=== PATIENT | male | born 1970 | race Caucasian/White ===

== ENCOUNTER 2017-12-03 13:13 | Emergency (ER) | payer OTHER, SELFPAY ==
[2017-12-03 13:15] VITALS: BP 179/90; PULSE 76; RESP 14; TEMP 37.1; O2SAT 99
--- NOTE | 2017-12-03 14:42 | ED.LOWEXIN ---
HPI - Extremity Injury (Lower) <MARIZOL Raya Last Filed: 12/03/17 19:55> General Chief Complaint: Extremity Injury, Lower Stated Complaint: LEFT KNEE PAIN Time Seen by Provider: 12/03/17 14:16 Source: patient Mode of arrival: ambulatory Limitations: physical limitation History of Present Illness HPI Narrative: This 47-year-old male comes in due to an exacerbation of intermittent quadrant left quadriceps/knee pain. He states that 10 years ago he had a complete tendon rupture of the quadriceps, which was repaired. He states that another orthopedist told him the anchors were put too far anteriorly, and so due to this he has intermittent exacerbations of severe pain under the knee cap. He states that over the weekend, he was running up some stairs and he had onset of pain under the knee about [facility] up. He states now it is very painful to bend the knee and lift it up due to the pain. He denies any fall or any other injury, and states this is very similar to the pain he has had in the past. He states that he mainly came in due to his girlfriend pushing him to because she was concerned about the amount of ibuprofen he tends to take (8 or 10 at a time) and he could not get an appointment with his PCP. He admits this can upset his stomach. He took some earlier this morning but has not had any since then. He states that he does not have weakness, and it is pain that keeps him from movement. He states that he is able to walk on flat ground with his knee brace that he uses when this flares up. Related Data Previous Rx's Medication Instructions Recorded hydrocodone-acetaminophen 1 tab PO Q8H PRN #5 tab 12/03/17 meloxicam 15 mg PO DAILY #14 tab 12/03/17 Allergies Allergy/AdvReac Type Severity Reaction Status Date / Time No Known Drug Allergies Allergy Verified 12/03/17 14:01 Review of Systems <MARIZOL Raya Last Filed: 12/03/17 19:55> Review of Systems All systems reviewed & are unremarkable except as noted in HPI and below PFSH <MARIZOL Raya Last Filed: 12/03/17 19:55> Comment: Acute renal EtOH, no street drugs Exam <MARIZOL Raya Last Filed: 12/03/17 19:55> Narrative Exam Narrative: GENERAL APPEARANCE: Patient sitting comfortably, in no distress. LUNGS: Clear to auscultation bilaterally. HEART: Rate and rhythm regular without murmur, normal S1 and S2, no S3 or S4. MUSCULOSKELETAL: Perhaps trace edema over the left inferior quadriceps versus the right. No tenderness over the muscle body which is intact by palpation. No tenderness over the left hip or knee joint. He is tender at the medial to midline inferior patellar border, no tenderness laterally. Quadriceps strength is intact against resistance however he has difficulty bending and straightening the knee secondary to tenderness. No tenderness over the lower leg or ankle EXTREMITIES: No cyanosis or edema, no calf tenderness Initial Vital Signs Initial Vital Signs: Vital Signs Temperature 98.8 F 12/03/17 13:15 Pulse Rate 76 12/03/17 13:15 Respiratory Rate 14 12/03/17 13:15 Blood Pressure 179/90 H 12/03/17 13:15 Pulse Oximetry 99 12/03/17 13:15 <Sergio Plunkett MD - Last Filed: 12/03/17 20:26> Initial Vital Signs Initial Vital Signs: Vital Signs Temperature 98.8 F 12/03/17 13:15 Pulse Rate 76 12/03/17 13:15 Respiratory Rate 14 12/03/17 13:15 Blood Pressure 179/90 H 12/03/17 13:15 Pulse Oximetry 99 12/03/17 13:15 Course <Mila Ponce PA-C - Last Filed: 12/03/17 19:55> Vital Signs - 8 hr 12/03/17 13:15 Temperature 98.8 F Pulse Rate 76 Respiratory Rate 14 Blood Pressure 179/90 H Pulse Oximetry 99 <Sergio Plunkett MD - Last Filed: 12/03/17 20:26> Vital Signs - 8 hr 12/03/17 13:15 Temperature 98.8 F Pulse Rate 76 Respiratory Rate 14 Blood Pressure 179/90 H Pulse Oximetry 99 Discharge Plan Departure Patient Disposition: Home Clinical Impression: Quadriceps tendonitis Discharge Date/Time: 12/03/17 15:21 Interventions: ED Discharge Assessment Last Done: 12/03/17 15:21 Instructions: Patellar Tendinopathy, DI for Quadriceps Strain Activity Restrictions/Additional Instructions: Since this is similar to the pain that you have had in the past, it is okay to treat similarly. I do not think that based on your exam today you have another rupture, just similar inflammation or tendinitis as you have had previously. I have given you instructions for patellar tendinopathy since you have similar pain. Please use your knee brace, and gentle walking on flat ground is okay. Please stop the large doses of ibuprofen that you are taking and use once a day meloxicam instead for anti-inflammatory. I have also given you a prescription for a few hydrocodone/acetaminophen to take at nighttime if needed. Do not drive and take that is it could make you sleepy. You can also supplement with Tylenol during the daytime as needed for pain. Please schedule appointment to follow up with your PCP to determine whether to make any other changes and consider following up with orthopedics as we talked about to determine whether any better long-term treatment since this has been given you problems off and on for a long time Prescriptions: New meloxicam 15 mg tablet 15 mg PO DAILY Qty: 14 RF: 0 hydrocodone-acetaminophen 5-325 mg tablet 1 tab PO Q8H PRN (Reason: leg pain) Qty: 5 RF: 0 Referrals: Daryn De La Torre MD [Primary Care Provider] - <Sergio Plunkett MD - Last Filed: 12/03/17 20:26> Cosign ED Attending Cosjoaquinature Attestation: I was present in the ER during this patient's evaluation. I was available for verbal consultation or to see the patient directly if requested. I agree with her evaluation and treatment plan.
== END 2017-12-03 15:21 | disposition home or self-care (01) ==
PROVIDERS: Emergency Provider Internal Medicine; PCP Family Medicine
DX: M76.899 Other specified enthesopathies of unspecified lower limb, excluding foot (principal)
CPT/HCPCS: 99282

== ENCOUNTER 2019-07-23 07:18 | Emergency (ER) | payer OTHER, SELFPAY ==
[2019-07-23 07:25] VITALS: BP 153/72; PULSE 77; RESP 21; TEMP 37.2; O2SAT 97
--- NOTE | 2019-07-23 07:32 | ED.BACK ---
HPI - Back Pain/Injury General Chief Complaint: Back Pain/Injury Stated Complaint: Hurt his back on saturday Time Seen by Provider: 07/23/19 07:27 Source: patient and family Limitations: no limitations History of Present Illness HPI Narrative: This is a 49-year-old male comes to the emergency department. Patient complains of back pain but describes it more in the right front hip region. Patient states on Saturday he picked up a box which he states was not particularly heavy bend over and had pain when this occurred. Since then he states his pain is very mild when sitting he states he can lie flat without any issues. When he stands particularly when he walks and flexes at the right hip he has pain in the right ASIS region. He states that there is tightness along the lower back and wrapping around towards the front. Patient states that walking, lifting his right leg at the hip exacerbate his symptoms. He can take 9 or 10 steps before it is quite severe. He denies any radiation down the rest of his leg he denies any numbness or tingling, no loss of bowel or bladder control, no fevers. He has had back issues in the past but typically just in the back and not in the anterior side. He denies any other medical issues. He did have a right complete quadriceps tendon tear in the past which he had surgery for remotely. He denies any allergies to medications. He states he has seen a chiropractor once since this occurred. He has been taking ibuprofen with mild improvement. Related Data Previous Rx's Medication Instructions Recorded diazepam [Valium] 5 mg PO TID PRN #14 tab 07/23/19 tramadol [Ultram] 50 mg PO Q6H PRN #14 tab 07/23/19 Allergies Allergy/AdvReac Type Severity Reaction Status Date / Time No Known Drug Allergies Allergy Verified 07/23/19 07:31 Review of Systems Review of Systems ROS Unobtainable: All systems reviewed & are unremarkable except as noted in HPI and below Patient History Surgical History Hx of nasal septoplasty (Resolved) Quadriceps muscle rupture (Resolved) Social History Smoking Status: Never smoker Smoking Status: Never smoker alcohol intake frequency: 0-2 drinks per day Substance Use Type: does not use Exam Narrative Exam Narrative: GENERAL: Alert and oriented x three, obese male in mild distress. HEENT: Head normocephalic, atraumatic, EOMI, pupils reactive, face symmetric, moist mucous membranes NECK: Supple, full range of motion CARDIOVASCULAR: Regular rate and rhythm without murmurs, rubs or gallops. RESPIRATORY: Breath sounds equal bilaterally, no wheezes rales or rhonchi. ABDOMEN: Soft, nontender. Normoactive bowel sounds all 4 quadrants. No guarding or rebound, rigidity, no mass, no right iguinal pain, mass or tenderness. : No CVA tenderness. BACK: No cervical, thoracic or lumbar vertebral point tenderness. Patient has some pain in right ASIS region. Patient has normal range of motion. Patient's gait is antalgic. Rectal exam is deferred. Muscle strength is 5/5 in lower extremities, DTRs are 2/4 and lower extremities. Dorsalis pedis and tibialis pulses are 2+ and lower extremities. Sensation is intact in the lower extremities. EXTREMITIES: Normal range of motion, no clubbing or edema. Neurovascularly intact NEUROLOGICAL: Cranial nerves II through XII grossly intact. Moving all extremities SKIN: Warm, dry, no petechiae, no rashes or lesions. Initial Vital Signs Initial Vital Signs: Vital Signs Temperature 98.9 F 07/23/19 07:25 Pulse Rate 77 07/23/19 07:25 Respiratory Rate 21 07/23/19 07:25 Blood Pressure 153/72 H 07/23/19 07:25 Pulse Oximetry 97 07/23/19 07:25 Course Orders Ordered: ED Orders 07/23/19 07:49 XR hip w pel if done RT 2V Stat Vital Signs Vital signs: Vital Signs - 8 hr 07/23/19 07:25 07/23/19 08:54 Temperature 98.9 F Pulse Rate 77 72 Respiratory Rate 21 16 Blood Pressure 153/72 H Blood Pressure [Left Arm] 143/82 H Pulse Oximetry 97 98 MDM - Back Pain/Injury Imaging Data right hip xray: Attestation: I personally reviewed and interpreted this imaging study as follows: My Impression: nap, no fx, degenerative changes, FB in lower pelvis noted. Radiologist's Impression: [address] [address] XRay Report Signed Patient: Ortiz Cotter MMR#: [id number] : 1970Acct:[id number] Age/Sex: 49 / MDate of Service: 07/23/19 Loc: ED Accession Number: [id number] Procedure: XR hip w pel if done RT 2V Ordering Provider: Nidhi Rodriguez D.O. PROCEDURE: XR HIP W PEL IF DONE RT 2V INDICATIONS: right back/hip pain, ASIS region TECHNIQUE: AP pelvis with lateral view(s) of the right hip(s). COMPARISON: None. FINDINGS: Bones: No fractures or dislocations. Pelvic ring appears intact. Osteophytic changes are noted in bilateral hip joints more prominent on the right side. No evidence of avascular necrosis of femoral head. No suspicious bony lesions. Soft tissues: The visualized bowel gas pattern is normal. No suspicious soft tissue calcifications. IMPRESSION: Right worse than left bilateral hip joint osteoarthritis. No hip fracture or dislocation. No evidence of avascular necrosis. Dictated by: Wisam Andrews M.D. on 07/23/2019 at 8:48 Approved by: Wisam Andrews M.D. on 07/23/2019 at 8:48 [facility] Narrative Medical decision making narrative: Patient has low back pain that radiates to right anterior ASIS region. Main area of pain is ASIS. Patient is not have any changes consistent with inguinal hernia. He does have some pain in lower back but more anteriorly and with flexion of his hip. Suspect the patient has muscular strain or arthritic changes that is causing his symptoms. Patient states ibuprofen has not been very helpful. X-ray shows arthritic changes no AVN. He does not have any tenderness of his lower back on palpation. He is able to stand and sit without issue him defers any pain medications in the department. Plan for short course of pain medication as well as muscle relaxer and follow up with primary care he is already set up an appointment for following Saturday or . Discussed return precautions. Discharge Plan Departure Patient Disposition: Home Clinical Impression: Hip pain, right Right low back pain Qualifiers: Chronicity: unspecified Sciatica presence: without sciatica Qualified Code(s): M54.5 - Low back pain Instructions: DI for Low Back Pain Activity Restrictions/Additional Instructions: Follow up with your physician. Call for an appointment if you have not already done this. Take pain medication as prescribed, if your pain is controlled with ibuprofen may take up to 600 mg every 6 hours as needed. If this is not adequate you may take 1 tablet of narcotic pain medication every 6 hours as needed. This medication will make you constipated make sure your taking a stool softener while taking any narcotic pain meds. Take muscle relaxer as needed, this medication can make you sleepy along with the narcotic medication make sure you do not drive, perform hazardous activities or make any major decisions while taking it. Prescription was sent to [facility]. Return to the ER for fevers greater 100.4 F, rapidly worsening back pain, loss of bowel or bladder control, new weakness, numbness or loss of sensation or inability usually lower extremity, redness, swelling or lumps in the groin. Prescriptions: New tramadol [Ultram] 50 mg tablet 50 mg PO Q6H PRN (Reason: pain) Qty: 14 RF: 0 diazepam [Valium] 5 mg tablet 5 mg PO TID PRN (Reason: muscle spasm) Qty: 14 RF: 0 Referrals: Daryn De La Torre MD [Primary Care Provider] -
--- NOTE | 2019-07-23 07:49 | DI.RAD.S_ITS ---
PROCEDURE: XR HIP W PEL IF DONE RT 2V INDICATIONS: right back/hip pain, ASIS region TECHNIQUE: AP pelvis with lateral view(s) of the right hip(s). COMPARISON: None. FINDINGS: Bones: No fractures or dislocations. Pelvic ring appears intact. Osteophytic changes are noted in bilateral hip joints more prominent on the right side. No evidence of avascular necrosis of femoral head. No suspicious bony lesions. Soft tissues: The visualized bowel gas pattern is normal. No suspicious soft tissue calcifications. IMPRESSION: Right worse than left bilateral hip joint osteoarthritis. No hip fracture or dislocation. No evidence of avascular necrosis. Dictated by: Wisam Andrews M.D. on 07/23/2019 at 8:48 Approved by: Wisam Andrews M.D. on 07/23/2019 at 8:48
[2019-07-23 08:54] VITALS: BP 143/82; PULSE 72; RESP 16; O2SAT 98
== END 2019-07-23 08:59 | disposition home or self-care (01) ==
PROVIDERS: Emergency Provider Emergency Medicine; PCP Family Medicine
DX: M25.551 Pain in right hip (principal); M54.5 Low back pain
CPT/HCPCS: 73502; 99283

== ENCOUNTER 2023-09-10 13:00 | Outpatient (RCR) | payer OTHER, SELFPAY ==
--- NOTE | 2023-08-06 09:41 | PT.OIE ---
Current Diagnoses Other chronic pain (08/06/23) Unilateral primary osteoarthritis, right hip (08/06/23) Pain in right hip (08/06/23) Difficulty in walking, not elsewhere classified (08/06/23) Weakness (08/06/23) Aftercare following joint replacement surgery (08/06/23) Presence of right artificial hip joint (08/06/23) Past Surgical History (Last Reviewed 07/23/19 @ 08:14 by Nidhi Rodriguez DO) Hx of nasal septoplasty Quadriceps muscle rupture Visit Care Team Role Provider Type Sergio Blank MD Family Provider Physician Primary Care Provider Specialty: Internal Medicine Address: [address] [place] [address], [id number] Email: Jnan Roche MD Attending Provider Non-Staff Referring Provider Specialty: Orthopedics Orthopedic Surgery Address: [address] [place] [address], [id number] Email: Physical Therapy Initial Evaluation PT-OP-A Visit Information Start: 08/05/23 16:35 Freq: Status: Active Protocol: Document 08/06/23 08:10 [facility] (Rec: 08/06/23 09:40 [facility] [id number]) Out-Patient Physical Therapy Visit Information Visit Information Visit Type Initial Evaluation Visit Start Time 08:15 Visit Stop Time 09:00 Visit Number 1 Evaluation Information Evaluation Date 08/06/23 PT-OP-B Current Condition Start: 08/05/23 16:35 Freq: Status: Active Protocol: Document 08/06/23 08:10 [facility]AK (Rec: 08/06/23 09:40 [facility] [id number]) Current Condition History of Current Condition Onset Date 07/31/23 Current Complaints right NAVIN (ant) History of Current Condition Patient reports he has had right hip pain x 7 years. Since surgery has been truggling with pain management , doctor added Ibuprofen and increased Oxycodone as needed. Has been using small gel ice packs. 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 Has been doing some exercises, not all; only glut sets and ankle pumps. Has been up stairs 2x at home; railing and cane, but has difficulty(pain) with descending step to pattern, has been sleeping in a recliner. History left total quadricep tendon rupture s/p surgery, and LBP due to compensation with walking. Future Testing and Treatments Planned sees surgeon 2 weeks post-op Treatment Goals Patient/Caregiver Goals Be able to walk without a cane Prior Functional Status Baseline Function- ADL's Independent Baseline Function- Mobility Independent Current Functional Impairments (Reported) Functional Limitations- ADL's painful, limited Functional Limitations- Mobility/Gait walks with FWW Functional Limitations- Work/School Has to go back to work 08/12/23 . Functional Limitations- Recreation/ unable Hobbies PT-OP-C Subjective Start: 08/05/23 16:35 Freq: Status: Active Protocol: Document 08/06/23 08:10 [facility] (Rec: 08/06/23 09:40 [facility] [id number]) Patient Questionnaires Lower Extremity Functional Scale LEFS Score 9% OP-PT Pain Assessment Pain Assessment Grid Paper Pain Assessment Grid Completed Yes Location Right Hip Intensity 9 Scale Used Numeric (0 - 10) Description Aching,Sharp,Stabbing,Tender Frequency Frequent Pain Aggravating Factors Activity,Exercise,Walking, Stair Climbing Pain Alleviating Factors Cold,Medication Home Pain Medication Use Pain Medications Used Yes Home Pain Medication Frequency Q4-6 hrs Pain Behaviors Pain Behaviors Calling Out,Facial Grimacing, Guarding,Wincing PT-OP-D Balance Start: 08/05/23 16:35 Freq: Status: Active Protocol: Document 08/06/23 08:10 [facility] (Rec: 08/06/23 09:40 [facility] [id number]) OP-PT Balance Assessment Standing Balance Static Standing Balance Ability Fair Device Used FWW Khan Fall Scale Copyright Permission PT-OP-G Mobility & Gait Start: 08/05/23 16:35 Freq: Status: Active Protocol: Document 08/06/23 08:10 [facility] (Rec: 08/06/23 09:40 [facility] [id number]) OP Gait Assessment Gait Gait Assistance Required: Standby Assistance Distance (Feet) 75 Able to Maintain Weight Bearing Status Yes During Gait Assistive Devices Assistive Device Front Wheeled Walker Gait Deviations General Gait Pattern Antalgic,Decreased Stride Length,Decreased Feet Clearance,Flexed Trunk Comments Gait Comments cues for upright posture, use of gluteals Stair Climbing Evaluation Comments Stair Climbing Comments not done today PT-OP-H Neuro Start: 08/05/23 16:35 Freq: Status: Active Protocol: Document 08/06/23 08:10 [facility] (Rec: 08/06/23 09:40 [facility] [id number]) Sensation Evaluation Gross Sensation Gross Sensation Right LE Impaired Sensation Description Paresthesia Comments Summary Comments numbness around incision, otherwise denies N/T PT-OP-J Posture/Palpation/Skin Start: 08/05/23 16:35 Freq: Status: Active Protocol: Document 08/06/23 08:10 [facility] (Rec: 08/06/23 09:40 [facility] [id number]) Posture Evaluation Position Standing Head/C-Spine Posture Forward Head T-Spine Posture Increased Kyphosis Weight Distribution Weight Shifted Left Palpation Assessment Location One Palpation Location right hip around incision Palpation Findings Edema,Tenderness Palpation Details mild increase in warmth Skin Assessment Other Assessments Skin Assessment Comments no signs or symptomns of infection PT-OP-K Range of Motion Start: 08/05/23 16:35 Freq: Status: Active Protocol: Document 08/06/23 08:10 [facility] (Rec: 08/06/23 09:40 [facility] [id number]) Hip Goniometric Range of Motion Hip Right Hip ROM WFL No Flexion w/Knee Flexed 70 Abduction 25 Comments AAROM, lacking full extension, doesn't tolerate right LE being flat on plinth Left Active Hip ROM WFL Yes Hip ROM Limitations Hip ROM Limitations Soft Tissue Tightness,Muscle Weakness,Pain,Swelling Knee Goniometric Range of Motion Knee Right Knee ROM WFL Yes Left Comments lacking full extension -8 PT-OP-M Strength Start: 08/05/23 16:35 Freq: Status: Active Protocol: Document 08/06/23 08:10 [facility] (Rec: 08/06/23 09:40 [facility] [id number]) Hip Strength Hip Manual Muscle Testing Left Comments WFL Right Comments less than antigravity, requires mod assist hip flex and abd Knee Strength Knee Manual Muscle Testing farzana Comments NO MMT due to recent surgery but has antigravity strength, no giving way with gait Ankle/Foot Strength Ankle and Foot Manual Muscle Testing farzana Dorsiflexion (L4) 5 Normal Plantarflexion (S1) 5 Normal PT-OP-Q Treatments Start: 08/05/23 16:35 Freq: Status: Active Protocol: Document 08/06/23 08:10 [facility] (Rec: 08/06/23 09:40 [facility] [id number]) Therapeutic Exercises Supine Exercises SAQ Side right Reps/Minutes 5 hip abd Side right Reps/Minutes 5x Comments mox assist heel slide Side right Reps/Minutes 5x Comments mod assist glut sets Side bilateral Reps/Minutes 10x ankle pumps Supine Exercise Name plus circles, inv/ev Side bilateral Reps/Minutes 5 Sitting Exercises LAQ Side bilateral Reps/Minutes 4x Standing Exercises weight shift Side bilateral Equipment Used FWW Reps/Minutes 5x Comments small, UE support Gait Training Gait Activity FWW Device Used FWW Level of Assistance SBA, cues Surface firm, level Distance/Duration 7k5 Treatment Focus cues for upright posture, equal step lengths, offload right LE with UE's Comments cues to do a few glut sets prior to walking Self-Care/Home Management Treatment Education Patient Education Home Exercise Program,Pain Management,Posture,Safety Other Education consider getting larger ice pack like used at PT do all exercises at least 2x/ day PT-OP-R Modalities Start: 08/05/23 16:35 Freq: Status: Active Protocol: Document 08/06/23 08:10 [facility] (Rec: 08/06/23 09:40 [facility] [id number]) Hot Pack/Cold Pack Treatment Cold Pack Location right hip Patient Position Hooklying Comments during patient instruction regarding self-care at home PT-OP-T Assessment and Plan Start: 08/05/23 16:35 Freq: Status: Active Protocol: Document 08/06/23 08:10 [facility] (Rec: 08/06/23 09:40 [facility] [id number]) Physical Therapy Assessment Rehab Potential Rehabilitation Potential Good Evaluation Complexity Number of Personal Factors/Comorbidities 1-2 Number of Body Systems Impaired 3 Clinical Presentation at Evaluation Evolving Impairments Impairments Activity Tolerance,Gait,Pain Goals Three Impairment pain right hip Impairment as high as 9/10 Short Term Goal (STG) Patient will report at least a 50% decrease in pain with all ADL's right hip STG Duration 08/27/23 Distribution [facility] Administrator Goal (LTG) Patient will report at least a 75% reduction in pain with all usual activities LTG Duration 09/16/23 Two Impairment weakness Short Term Goal (STG) Patient to be instructed in HEP for purposes of right hip strengthening and ROM to address strength impairments STG Duration 08/27/23 [facility] Administrator Goal (LTG) Patient will be independentt and compliant with HEP and demonstrate improvement in functional strength including ability to transfer from sit to stand without using UE's and greater than antigravity strength all muscle groups LTG Duration 09/16/23 One Impairment gait dysfunction Impairment antalgic gait using FWW, difficulty with stair ambulation Short Term Goal (STG) Patient will be able to ambulate on level surfaces with cane with min to no limp and ascend and descend stairs with step-to pattern without difficulty STG Duration 08/27/23 [facility] Center Administrator Goal (LTG) Patient will be able to ambulate on level surfaces without an assistive device with min to no limp and ascend and descend stairs with alternating step pattern LTG Duration 09/16/23 Assessment Summary Assessment Patient presents to PT s/p right NAVIN 5 days ago, c/o difficulty with pain management, has talked with physician's office about addition of Ibuprofen and increase in Oxycodone. No signs or symptoms of infection . Patient has stairs at home but has difficulty with inc pain descending even with step -to pattern so has used minimally and is sleeping in a recliner. Additionally doing minimal HEP. Patient post-op HEP reviewed with instruction to perform 2x/day, initially with assist of for heel slide and hip abduction ( instructed today). Gait training also performed with cues for equalizing step length and improving offloading of right LE with UE 's without limp. Patient and demonstrated good understanding of all. Ended with ice to right hip and patient was advised to obtain large ice pack like used in PT vs his small ones at home. Patient reported decrease in pain after PT. He will benefit from PT for right NAVIN rehab. Physical Therapy Plan Frequency and Duration Frequency of Treatment 8 visits Duration of treatment (weeks) 6 Plan of Care Start Date 08/06/23 Plan of Care End Date 09/20/23 Therapeutic Interventions Therapeutic Interventions Gait Training,Home Exercise Program,Manual Therapy, Neuromuscular Re-education, Patient/Caregiver Education, Self-Care/Home Management,Soft Tissue Mobilization,Taping, Therapeutic Activities, Therapeutic Exercises Modalities Cold Pack/Ice Massage,Electric Stimulation,Infrared Therapy Next Visit Focus/Plan Next Note Type Treatment Note Next Visit Plan Start with recumbant elliptical, review and progress HEP as tolerated. Gait training level and stairs . End with ice, consider IFES .
--- NOTE | 2023-08-06 09:41 | PT.OPPOC ---
Physical, Occupational & Speech Therapy At [facility] Current Diagnoses Other chronic pain (08/06/23) Unilateral primary osteoarthritis, right hip (08/06/23) Pain in right hip (08/06/23) Difficulty in walking, not elsewhere classified (08/06/23) Weakness (08/06/23) Aftercare following joint replacement surgery (08/06/23) Presence of right artificial hip joint (08/06/23) Visit Care Team Role Provider Type Sergio Blank MD Family Provider Physician Primary Care Provider Specialty: Internal Medicine Address: [address] [place] [address], [phone] Email: Jann Roche MD Attending Provider Non-Staff Referring Provider Specialty: Orthopedics Orthopedic Surgery Address: [address] [place] [address], [phone] Email: Plan Of Care PT-OP-T Assessment and Plan Start: 08/05/23 16:35 Freq: Status: Active Protocol: Document 08/06/23 08:10 [facility] (Rec: 08/06/23 09:40 [facility] [id number]) Physical Therapy Assessment Rehab Potential Rehabilitation Potential Good Evaluation Complexity Number of Personal Factors/Comorbidities 1-2 Number of Body Systems Impaired 3 Clinical Presentation at Evaluation Evolving Impairments Impairments Activity Tolerance,Gait,Pain Goals Three Impairment pain right hip Impairment as high as 9/10 Short Term Goal (STG) Patient will report at least a 50% decrease in pain with all ADL's right hip STG Duration 08/27/23 Longterm Goal (LTG) Patient will report at least a 75% reduction in pain with all usual activities LTG Duration 09/16/23 Two Impairment weakness Short Term Goal (STG) Patient to be instructed in HEP for purposes of right hip strengthening and ROM to address strength impairments STG Duration 08/27/23 Longterm Goal (LTG) Patient will be independentt and compliant with HEP and demonstrate improvement in functional strength including ability to transfer from sit to stand without using UE's and greater than antigravity strength all muscle groups LTG Duration 09/16/23 One Impairment gait dysfunction Impairment antalgic gait using FWW, difficulty with stair ambulation Short Term Goal (STG) Patient will be able to ambulate on level surfaces with cane with min to no limp and ascend and descend stairs with step-to pattern without difficulty STG Duration 08/27/23 Longterm Goal (LTG) Patient will be able to ambulate on level surfaces without an assistive device with min to no limp and ascend and descend stairs with alternating step pattern LTG Duration 09/16/23 Assessment Summary Assessment Patient presents to PT s/p right NAVIN 5 days ago, c/o difficulty with pain management, has talked with physician's office about addition of Ibuprofen and increase in Oxycodone. No signs or symptoms of infection . Patient has stairs at home but has difficulty with inc pain descending even with step -to pattern so has used minimally and is sleeping in a recliner. Additionally doing minimal HEP. Patient post-op HEP reviewed with instruction to perform 2x/day, initially with assist of for heel slide and hip abduction ( instructed today). Gait training also performed with cues for equalizing step length and improving offloading of right LE with UE 's without limp. Patient and demonstrated good understanding of all. Ended with ice to right hip and patient was advised to obtain large ice pack like used in PT vs his small ones at home. Patient reported decrease in pain after PT. He will benefit from PT for right NAVIN rehab. Physical Therapy Plan Frequency and Duration Frequency of Treatment 8 visits Duration of treatment (weeks) 6 Plan of Care Start Date 08/06/23 Plan of Care End Date 09/20/23 Therapeutic Interventions Therapeutic Interventions Gait Training,Home Exercise Program,Manual Therapy, Neuromuscular Re-education, Patient/Caregiver Education, Self-Care/Home Management,Soft Tissue Mobilization,Taping, Therapeutic Activities, Therapeutic Exercises Modalities Cold Pack/Ice Massage,Electric Stimulation,Infrared Therapy Next Visit Focus/Plan Next Note Type Treatment Note Next Visit Plan Start with recumbant elliptical, review and progress HEP as tolerated. Gait training level and stairs . End with ice, consider IFES . Plan of Care Dates Plan of Care Start Date 08/06/23 Plan of Care End Date 09/20/23 Electronically Signed by: Carla Lechuga, PT 08/06/23 [id number] If you are in agreement with this Plan of Care, please return a signed and dated copy. I have reviewed this Plan of Care and certify that the skilled therapy services above are required to meet the patient?s needs. Physician Signature Date Printed Name and Credentials Clinical Instructor Signature Printed Name and Credentials
--- NOTE | 2023-08-08 12:01 | PT.OTN ---
Current Diagnoses Other chronic pain (08/08/23) Unilateral primary osteoarthritis, right hip (08/08/23) Pain in right hip (08/08/23) Difficulty in walking, not elsewhere classified (08/08/23) Weakness (08/08/23) Aftercare following joint replacement surgery (08/08/23) Presence of right artificial hip joint (08/08/23) Physical Therapy Treatment Note PT-OP-A Visit Information Start: 08/05/23 16:35 Freq: Status: Active Protocol: Document 08/08/23 09:46 SAK (Rec: 08/08/23 10:38 [facility] [id number]) Out-Patient Physical Therapy Visit Information Visit Information Visit Type Treatment Note Visit Start Time 09:47 Visit Stop Time 10:40 Visit Number 2 Evaluation Information Evaluation Date 08/06/23 PT-OP-B Current Condition Start: 08/05/23 16:35 Freq: Status: Active Protocol: Document 08/08/23 09:46 SAK (Rec: 08/08/23 10:38 [facility] [id number]) Current Condition History of Current Condition Onset Date 07/31/23 Current Complaints right NAVIN (ant) History of Current Condition Patient reports he has had right hip pain x 7 years. Since surgery has been truggling with pain management , doctor added Ibuprofen and increased Oxycodone as needed. Has been using small gel ice packs. 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 Has been doing some exercises, not all; only glut sets and ankle pumps. Has been up stairs 2x at home; railing and cane, but has difficulty(pain) with descending step to pattern, has been sleeping in a recliner. History left total quadricep tendon rupture s/p surgery, and LBP due to compensation with walking. Future Testing and Treatments Planned sees surgeon 2 weeks post-op PT-OP-C Subjective Start: 08/05/23 16:35 Freq: Status: Active Protocol: Document 08/08/23 09:46 SAK (Rec: 08/08/23 10:38 [facility] [id number]) OP-PT Subjective Patient Comments Patient Comments Bad night last night, didn't sleep well, couldn't get comfortable. States his made him take 2 Oxycodone this am due to his pain level. Hasn't gotten a larger ice pack but is using 2 small ones . Did HEP 2x yesterday. PT-OP-D Balance Start: 08/05/23 16:35 Freq: Status: Active Protocol: Document 08/06/23 08:10 SAK (Rec: 08/06/23 09:40 [facility] [id number]) OP-PT Balance Assessment Standing Balance Static Standing Balance Ability Fair Device Used FWW Khan Fall Scale Copyright Permission PT-OP-G Mobility & Gait Start: 08/05/23 16:35 Freq: Status: Active Protocol: Document 08/06/23 08:10 SAK (Rec: 08/06/23 09:40 [facility] [id number]) OP Gait Assessment Gait Gait Assistance Required: Standby Assistance Distance (Feet) 75 Able to Maintain Weight Bearing Status Yes During Gait Assistive Devices Assistive Device Front Wheeled Walker Gait Deviations General Gait Pattern Antalgic,Decreased Stride Length,Decreased Feet Clearance,Flexed Trunk Comments Gait Comments cues for upright posture, use of gluteals Stair Climbing Evaluation Comments Stair Climbing Comments not done today PT-OP-H Neuro Start: 08/05/23 16:35 Freq: Status: Active Protocol: Document 08/06/23 08:10 SAK (Rec: 08/06/23 09:40 [facility] [id number]) Sensation Evaluation Gross Sensation Gross Sensation Right LE Impaired Sensation Description Paresthesia Comments Summary Comments numbness around incision, otherwise denies N/T PT-OP-J Posture/Palpation/Skin Start: 08/05/23 16:35 Freq: Status: Active Protocol: Document 08/06/23 08:10 SAK (Rec: 08/06/23 09:40 [facility] [id number]) Posture Evaluation Position Standing Head/C-Spine Posture Forward Head T-Spine Posture Increased Kyphosis Weight Distribution Weight Shifted Left Palpation Assessment Location One Palpation Location right hip around incision Palpation Findings Edema,Tenderness Palpation Details mild increase in warmth Skin Assessment Other Assessments Skin Assessment Comments no signs or symptomns of infection PT-OP-K Range of Motion Start: 08/05/23 16:35 Freq: Status: Active Protocol: Document 08/06/23 08:10 SAK (Rec: 08/06/23 09:40 [facility] [id number]) Hip Goniometric Range of Motion Hip Right Hip ROM WFL No Flexion w/Knee Flexed 70 Abduction 25 Comments AAROM, lacking full extension, doesn't tolerate right LE being flat on plinth Left Active Hip ROM WFL Yes Hip ROM Limitations Hip ROM Limitations Soft Tissue Tightness,Muscle Weakness,Pain,Swelling Knee Goniometric Range of Motion Knee Right Knee ROM WFL Yes Left Comments lacking full extension -8 PT-OP-M Strength Start: 08/05/23 16:35 Freq: Status: Active Protocol: Document 08/06/23 08:10 [facility] (Rec: 08/06/23 09:40 [facility] [id number]) Hip Strength Hip Manual Muscle Testing Left Comments WFL Right Comments less than antigravity, requires mod assist hip flex and abd Knee Strength Knee Manual Muscle Testing farzana Comments NO MMT due to recent surgery but has antigravity strength, no giving way with gait Ankle/Foot Strength Ankle and Foot Manual Muscle Testing farzana Dorsiflexion (L4) 5 Normal Plantarflexion (S1) 5 Normal PT-OP-Q Treatments Start: 08/05/23 16:35 Freq: Status: Active Protocol: Document 08/08/23 09:46 [facility] (Rec: 08/08/23 10:38 [facility] [id number]) Therapeutic Exercises Supine Exercises SAQ Side bilateral Equipment Used round bolster Reps/Minutes 10x hip abd Side right Equipment Used slider sheet Reps/Minutes 10x Comments mod assist heel slide Side right Equipment Used slider sheet Reps/Minutes 10x Comments mod assist glut sets Reps/Minutes 10x Comments farzana and unil ankle pumps Supine Exercise Name HEP Sitting Exercises LAQ Side bilateral Reps/Minutes 10 Standing Exercises hip flex Standing Exercise Name (may) Reps/Minutes 10x Comments cues to think stepping up onto step HC stretch Equipment Used THU Reps/Minutes 2x heel/toe raise Reps/Minutes 10x Gait Training Gait Activity // bars Device Used parallel bars farzana UEs then single UE simulate cane, mirror Level of Assistance verbal cues Distance/Duration 4 rounds Treatment Focus symmetry, glueal activation Comments cues for gluteal activation, dec limp, symmetry FWW Device Used FWW Level of Assistance SBA, cues Surface firm, level Distance/Duration 50 ft x 2 Treatment Focus cues for upright posture, equal step lengths, offload right LE with UE's Comments cues to stand tall and do a few glut sets prior to walking Self-Care/Home Management Treatment Education Patient Education Home Exercise Program,Pain Management,Posture PT-OP-R Modalities Start: 08/05/23 16:35 Freq: Status: Active Protocol: Document 08/06/23 08:10 SAK (Rec: 08/06/23 09:40 SAK [id number]) Hot Pack/Cold Pack Treatment Cold Pack Location right hip Patient Position Hooklying Comments during patient instruction regarding self-care at home PT-OP-T Assessment and Plan Start: 08/05/23 16:35 Freq: Status: Active Protocol: Document 08/08/23 09:46 SAK (Rec: 08/08/23 10:38 [facility] [id number]) Physical Therapy Assessment Impairments Impairments Activity Tolerance,Gait,Pain Goals Three Impairment pain right hip Impairment as high as 9/10 Short Term Goal (STG) Patient will report at least a 50% decrease in pain with all ADL's right hip STG Duration 08/27/23 Studio Operations Manager Goal (LTG) Patient will report at least a 75% reduction in pain with all usual activities LTG Duration 09/16/23 Two Impairment weakness Short Term Goal (STG) Patient to be instructed in HEP for purposes of right hip strengthening and ROM to address strength impairments STG Duration 08/27/23 Studio Operations Manager Goal (LTG) Patient will be independentt and compliant with HEP and demonstrate improvement in functional strength including ability to transfer from sit to stand without using UE's and greater than antigravity strength all muscle groups LTG Duration 09/16/23 One Impairment gait dysfunction Impairment antalgic gait using FWW, difficulty with stair ambulation Short Term Goal (STG) Patient will be able to ambulate on level surfaces with cane with min to no limp and ascend and descend stairs with step-to pattern without difficulty STG Duration 08/27/23 Detention Goal (LTG) Patient will be able to ambulate on level surfaces without an assistive device with min to no limp and ascend and descend stairs with alternating step pattern LTG Duration 09/16/23 Assessment Summary Assessment Patient improved gait after gait training with decreased limp and improved gluteal activation in stance. Progressed HEP with updated HO issued for new ex of standing hip ab and flex (right LE only) heel raises and HC stretch. Patient struggling with sleeping and with pain management. Physical Therapy Plan Frequency and Duration Frequency of Treatment 8 visits Duration of treatment (weeks) 6 Plan of Care Start Date 08/06/23 Plan of Care End Date 09/20/23 Therapeutic Interventions Therapeutic Interventions Gait Training,Home Exercise Program,Manual Therapy, Neuromuscular Re-education, Patient/Caregiver Education, Self-Care/Home Management,Soft Tissue Mobilization,Taping, Therapeutic Activities, Therapeutic Exercises Modalities Cold Pack/Ice Massage,Electric Stimulation,Infrared Therapy Next Visit Focus/Plan Next Note Type Treatment Note Next Visit Plan Continue NAVIN rehab (anterior approach). Gait training with cane if tolerated, gait training on stairs step-to pattern on 6 stairs, possibly alternating on 4. LE strengthening, add shuttle leg press farzana and unil. End with ice right hip. Possible patient and ed for sidelying positioning on right pillows between knees for improved comfort and sleep.
--- NOTE | 2023-08-13 11:29 | PT.OTN ---
Current Diagnoses Other chronic pain (08/13/23) Unilateral primary osteoarthritis, right hip (08/13/23) Pain in right hip (08/13/23) Difficulty in walking, not elsewhere classified (08/13/23) Weakness (08/13/23) Aftercare following joint replacement surgery (08/13/23) Presence of right artificial hip joint (08/13/23) Physical Therapy Treatment Note PT-OP-A Visit Information Start: 08/05/23 16:35 Freq: Status: Active Protocol: Document 08/13/23 10:40 SP (Rec: 08/15/23 07:34 SP [id number]) Out-Patient Physical Therapy Visit Information Visit Information Visit Type Treatment Note Visit Start Time 10:37 Visit Stop Time 11:29 Visit Number 4 Number of PSYCHOLOGIST CLINICAL Visits 2 Evaluation Information Evaluation Date 08/06/23 PT-OP-B Current Condition Start: 08/05/23 16:35 Freq: Status: Active Protocol: Document 08/08/23 09:46 SAK (Rec: 08/08/23 10:38 SAK [id number]) Current Condition History of Current Condition Onset Date 07/31/23 Current Complaints right NAVIN (ant) History of Current Condition Patient reports he has had right hip pain x 7 years. Since surgery has been truggling with pain management , doctor added Ibuprofen and increased Oxycodone as needed. Has been using small gel ice packs. 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 Has been doing some exercises, not all; only glut sets and ankle pumps. Has been up stairs 2x at home; railing and cane, but has difficulty(pain) with descending step to pattern, has been sleeping in a recliner. History left total quadricep tendon rupture s/p surgery, and LBP due to compensation with walking. Future Testing and Treatments Planned sees surgeon 2 weeks post-op PT-OP-C Subjective Start: 08/05/23 16:35 Freq: Status: Active Protocol: Document 08/13/23 10:40 SP (Rec: 08/15/23 07:34 SP [id number]) OP-PT Subjective Patient Comments Patient Comments Pt reports still needing to use leg kennel hand to get RLE on/ off table and reposition. Continues to utilize CP R anterolateral hip for swelling control. Trying to be good about standing straighter and reminds him when walking. Compliant with HEP. PT-OP-D Balance Start: 08/05/23 16:35 Freq: Status: Active Protocol: Document 08/06/23 08:10 SAK (Rec: 08/06/23 09:40 [facility] [id number]) OP-PT Balance Assessment Standing Balance Static Standing Balance Ability Fair Device Used FWW Khan Fall Scale Copyright Permission PT-OP-G Mobility & Gait Start: 08/05/23 16:35 Freq: Status: Active Protocol: Document 08/06/23 08:10 SAK (Rec: 08/06/23 09:40 [facility] [id number]) OP Gait Assessment Gait Gait Assistance Required: Standby Assistance Distance (Feet) 75 Able to Maintain Weight Bearing Status Yes During Gait Assistive Devices Assistive Device Front Wheeled Walker Gait Deviations General Gait Pattern Antalgic,Decreased Stride Length,Decreased Feet Clearance,Flexed Trunk Comments Gait Comments cues for upright posture, use of gluteals Stair Climbing Evaluation Comments Stair Climbing Comments not done today PT-OP-H Neuro Start: 08/05/23 16:35 Freq: Status: Active Protocol: Document 08/06/23 08:10 SAK (Rec: 08/06/23 09:40 [facility] [id number]) Sensation Evaluation Gross Sensation Gross Sensation Right LE Impaired Sensation Description Paresthesia Comments Summary Comments numbness around incision, otherwise denies N/T PT-OP-J Posture/Palpation/Skin Start: 08/05/23 16:35 Freq: Status: Active Protocol: Document 08/06/23 08:10 SAK (Rec: 08/06/23 09:40 [facility] [id number]) Posture Evaluation Position Standing Head/C-Spine Posture Forward Head T-Spine Posture Increased Kyphosis Weight Distribution Weight Shifted Left Palpation Assessment Location One Palpation Location right hip around incision Palpation Findings Edema,Tenderness Palpation Details mild increase in warmth Skin Assessment Other Assessments Skin Assessment Comments no signs or symptomns of infection PT-OP-K Range of Motion Start: 08/05/23 16:35 Freq: Status: Active Protocol: Document 08/06/23 08:10 SAK (Rec: 08/06/23 09:40 [facility] [id number]) Hip Goniometric Range of Motion Hip Right Hip ROM WFL No Flexion w/Knee Flexed 70 Abduction 25 Comments AAROM, lacking full extension, doesn't tolerate right LE being flat on plinth Left Active Hip ROM WFL Yes Hip ROM Limitations Hip ROM Limitations Soft Tissue Tightness,Muscle Weakness,Pain,Swelling Knee Goniometric Range of Motion Knee Right Knee ROM WFL Yes Left Comments lacking full extension -8 PT-OP-M Strength Start: 08/05/23 16:35 Freq: Status: Active Protocol: Document 08/06/23 08:10 SAK (Rec: 08/06/23 09:40 SAK [id number]) Hip Strength Hip Manual Muscle Testing Left Comments WFL Right Comments less than antigravity, requires mod assist hip flex and abd Knee Strength Knee Manual Muscle Testing zac Comments NO MMT due to recent surgery but has antigravity strength, no giving way with gait Ankle/Foot Strength Ankle and Foot Manual Muscle Testing zac Dorsiflexion (L4) 5 Normal Plantarflexion (S1) 5 Normal PT-OP-Q Treatments Start: 08/05/23 16:35 Freq: Status: Active Protocol: Document 08/13/23 10:40 SP (Rec: 08/15/23 07:34 SP [id number]) Therapeutic Exercises Supine Exercises SAQ Side bilateral Equipment Used round bolster Reps/Minutes 10x 2 hip abd Side right Equipment Used slider sheet and use strap as needed Reps/Minutes 10x Comments mod assist heel slide Side right Equipment Used slider sheet and strap as needed Reps/Minutes 10x Comments mod assist ankle pumps Supine Exercise Name R leg long axis Side right Sitting Exercises LAQ Side bilateral Reps/Minutes 10 Standing Exercises hip abduction Side right Equipment Used counter contact Reps/Minutes x10 Comments cued elongated tall posturing heel/toe raise Reps/Minutes 10x Gait Training Gait Activity SPC Device Used LUE Comments cued taller posturing, DF and stride clearance. Good patterning with RLE Manual Therapy Treatment Soft Tissue Mobilization R hip Mobilization Type Manual Lymphatic Drainage Intensity/Depth Superficial Body Position Hooklying Comments broad PT-OP-R Modalities Start: 08/05/23 16:35 Freq: Status: Active Protocol: Document 08/13/23 10:40 SP (Rec: 08/15/23 07:34 SP [id number]) Hot Pack/Cold Pack Treatment Cold Pack Location right hip Patient Position Hooklying Patient Tolerance Good Comments incorporating during day home. PT-OP-T Assessment and Plan Start: 08/05/23 16:35 Freq: Status: Active Protocol: Document 08/13/23 10:40 SP (Rec: 08/15/23 07:34 SP [id number]) Physical Therapy Assessment Goals Three Impairment pain right hip Impairment as high as 9/10 Short Term Goal (STG) Patient will report at least a 50% decrease in pain with all ADL's right hip STG Duration 08/27/23 Skilled Nursing Goal (LTG) Patient will report at least a 75% reduction in pain with all usual activities LTG Duration 09/16/23 Two Impairment weakness Short Term Goal (STG) Patient to be instructed in HEP for purposes of right hip strengthening and ROM to address strength impairments STG Duration 08/27/23 Ct Mri Technologist Goal (LTG) Patient will be independentt and compliant with HEP and demonstrate improvement in functional strength including ability to transfer from sit to stand without using UE's and greater than antigravity strength all muscle groups LTG Duration 09/16/23 One Impairment gait dysfunction Impairment antalgic gait using FWW, difficulty with stair ambulation Short Term Goal (STG) Patient will be able to ambulate on level surfaces with cane with min to no limp and ascend and descend stairs with step-to pattern without difficulty STG Duration 08/27/23 Ct Mri Technologist Goal (LTG) Patient will be able to ambulate on level surfaces without an assistive device with min to no limp and ascend and descend stairs with alternating step pattern LTG Duration 09/16/23 Assessment Summary Assessment Pt good response to gentle STMs R anterolateral thigh and response to CP. Utilizing strap for supine hip flexion and on/of table support. Improved wt shift WB into RLE and ability to progress use of SPC in LUE for gait. Cues for increased upright posturing during stand and walking. Continues to need use of CP for swelling and pain mgt. Physical Therapy Plan Frequency and Duration Frequency of Treatment 8 visits Duration of treatment (weeks) 6 Plan of Care Start Date 08/06/23 Plan of Care End Date 09/20/23 Therapeutic Interventions Therapeutic Interventions Gait Training,Home Exercise Program,Manual Therapy, Neuromuscular Re-education, Patient/Caregiver Education, Self-Care/Home Management,Soft Tissue Mobilization,Taping, Therapeutic Activities, Therapeutic Exercises Modalities Cold Pack/Ice Massage,Electric Stimulation,Infrared Therapy Next Visit Focus/Plan Next Note Type Treatment Note Next Visit Plan Recumbent bike stepper, add shuttle press Zac. Continue NAVIN rehab (anterior approach). Gait training with cane, trial gait training on stairs step-to pattern on 4-6 stairs . LE strengthening, End with ice right hip. Possible patient and ed for sidelying positioning on right pillows between knees for improved comfort and sleep.
--- NOTE | 2023-08-15 14:10 | PT.OTN ---
Current Diagnoses Other chronic pain (08/15/23) Unilateral primary osteoarthritis, right hip (08/15/23) Pain in right hip (08/15/23) Difficulty in walking, not elsewhere classified (08/15/23) Weakness (08/15/23) Aftercare following joint replacement surgery (08/15/23) Presence of right artificial hip joint (08/15/23) Physical Therapy Treatment Note PT-OP-A Visit Information Start: 08/05/23 16:35 Freq: Status: Active Protocol: Document 08/15/23 12:56 SW (Rec: 08/15/23 14:10 SW [id number]) Out-Patient Physical Therapy Visit Information Visit Information Visit Type Treatment Note Visit Start Time 13:00 Visit Stop Time 13:40 PT-OP-B Current Condition Start: 08/05/23 16:35 Freq: Status: Active Protocol: Document 08/08/23 09:46 SAK (Rec: 08/08/23 10:38 SAK [id number]) Current Condition History of Current Condition Onset Date 07/31/23 Current Complaints right NAVIN (ant) History of Current Condition Patient reports he has had right hip pain x 7 years. Since surgery has been truggling with pain management , doctor added Ibuprofen and increased Oxycodone as needed. Has been using small gel ice packs. 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 Has been doing some exercises, not all; only glut sets and ankle pumps. Has been up stairs 2x at home; railing and cane, but has difficulty(pain) with descending step to pattern, has been sleeping in a recliner. History left total quadricep tendon rupture s/p surgery, and LBP due to compensation with walking. Future Testing and Treatments Planned sees surgeon 2 weeks post-op PT-OP-C Subjective Start: 08/05/23 16:35 Freq: Status: Active Protocol: Document 08/15/23 12:56 SW (Rec: 08/15/23 14:10 SW [id number]) OP-PT Subjective Patient Comments Patient Comments pt reports had followup post op yesterday, reports able to discontinue compression, incision looks good. PT-OP-D Balance Start: 08/05/23 16:35 Freq: Status: Active Protocol: Document 08/06/23 08:10 SAK (Rec: 08/06/23 09:40 [facility] [id number]) OP-PT Balance Assessment Standing Balance Static Standing Balance Ability Fair Device Used FWW Khan Fall Scale Copyright Permission PT-OP-G Mobility & Gait Start: 08/05/23 16:35 Freq: Status: Active Protocol: Document 08/06/23 08:10 SAK (Rec: 08/06/23 09:40 [facility] [id number]) OP Gait Assessment Gait Gait Assistance Required: Standby Assistance Distance (Feet) 75 Able to Maintain Weight Bearing Status Yes During Gait Assistive Devices Assistive Device Front Wheeled Walker Gait Deviations General Gait Pattern Antalgic,Decreased Stride Length,Decreased Feet Clearance,Flexed Trunk Comments Gait Comments cues for upright posture, use of gluteals Stair Climbing Evaluation Comments Stair Climbing Comments not done today PT-OP-H Neuro Start: 08/05/23 16:35 Freq: Status: Active Protocol: Document 08/06/23 08:10 SAK (Rec: 08/06/23 09:40 [facility] [id number]) Sensation Evaluation Gross Sensation Gross Sensation Right LE Impaired Sensation Description Paresthesia Comments Summary Comments numbness around incision, otherwise denies N/T PT-OP-J Posture/Palpation/Skin Start: 08/05/23 16:35 Freq: Status: Active Protocol: Document 08/06/23 08:10 SAK (Rec: 08/06/23 09:40 [facility] [id number]) Posture Evaluation Position Standing Head/C-Spine Posture Forward Head T-Spine Posture Increased Kyphosis Weight Distribution Weight Shifted Left Palpation Assessment Location One Palpation Location right hip around incision Palpation Findings Edema,Tenderness Palpation Details mild increase in warmth Skin Assessment Other Assessments Skin Assessment Comments no signs or symptomns of infection PT-OP-K Range of Motion Start: 08/05/23 16:35 Freq: Status: Active Protocol: Document 08/06/23 08:10 SAK (Rec: 08/06/23 09:40 [facility] [id number]) Hip Goniometric Range of Motion Hip Right Hip ROM WFL No Flexion w/Knee Flexed 70 Abduction 25 Comments AAROM, lacking full extension, doesn't tolerate right LE being flat on plinth Left Active Hip ROM WFL Yes Hip ROM Limitations Hip ROM Limitations Soft Tissue Tightness,Muscle Weakness,Pain,Swelling Knee Goniometric Range of Motion Knee Right Knee ROM WFL Yes Left Comments lacking full extension -8 PT-OP-M Strength Start: 08/05/23 16:35 Freq: Status: Active Protocol: Document 08/06/23 08:10 SAK (Rec: 08/06/23 09:40 SAK [id number]) Hip Strength Hip Manual Muscle Testing Left Comments WFL Right Comments less than antigravity, requires mod assist hip flex and abd Knee Strength Knee Manual Muscle Testing zac Comments NO MMT due to recent surgery but has antigravity strength, no giving way with gait Ankle/Foot Strength Ankle and Foot Manual Muscle Testing zac Dorsiflexion (L4) 5 Normal Plantarflexion (S1) 5 Normal PT-OP-Q Treatments Start: 08/05/23 16:35 Freq: Status: Active Protocol: Document 08/15/23 12:56 SW (Rec: 08/15/23 14:10 SW [id number]) Therapeutic Exercises Supine Exercises SAQ Side bilateral Equipment Used round bolster Reps/Minutes 10x 2 hip abd Side right Equipment Used slider sheet and use strap as needed Reps/Minutes 10x Comments mod assist Sitting Exercises LAQ Side bilateral Reps/Minutes x15 Standing Exercises hip abduction Side right Equipment Used counter contact Reps/Minutes x10 Comments cued elongated tall posturing hip flex Standing Exercise Name (may) Reps/Minutes 10x Comments cues to think stepping up onto step HC stretch Equipment Used Stair, BUE support Reps/Minutes 2x heel/toe raise Reps/Minutes 10x weight shift Side bilateral Equipment Used @ rail Reps/Minutes 5x ea Comments small, UE support Gait Training Gait Activity SPC Device Used LUE Treatment Focus Gait mechanics, weight shifting Comments cued taller posturing, weight shift, Adjusted SPC to correct position (aligning with wrist crease with good posture) PT-OP-R Modalities Start: 08/05/23 16:35 Freq: Status: Active Protocol: Document 08/13/23 10:40 SP (Rec: 08/15/23 07:34 SP [id number]) Hot Pack/Cold Pack Treatment Cold Pack Location right hip Patient Position Hooklying Patient Tolerance Good Comments incorporating during day home. PT-OP-T Assessment and Plan Start: 08/05/23 16:35 Freq: Status: Active Protocol: Document 08/15/23 12:56 SW (Rec: 08/15/23 14:10 SW [id number]) Physical Therapy Assessment Goals Three Impairment pain right hip Impairment as high as 9/10 Short Term Goal (STG) Patient will report at least a 50% decrease in pain with all ADL's right hip STG Duration 08/27/23 Instrument Setter Goal (LTG) Patient will report at least a 75% reduction in pain with all usual activities LTG Duration 09/16/23 Two Impairment weakness Short Term Goal (STG) Patient to be instructed in HEP for purposes of right hip strengthening and ROM to address strength impairments STG Duration 08/27/23 Skilled Nursing Goal (LTG) Patient will be independentt and compliant with HEP and demonstrate improvement in functional strength including ability to transfer from sit to stand without using UE's and greater than antigravity strength all muscle groups LTG Duration 09/16/23 One Impairment gait dysfunction Impairment antalgic gait using FWW, difficulty with stair ambulation Short Term Goal (STG) Patient will be able to ambulate on level surfaces with cane with min to no limp and ascend and descend stairs with step-to pattern without difficulty STG Duration 08/27/23 Instrument Setter Goal (LTG) Patient will be able to ambulate on level surfaces without an assistive device with min to no limp and ascend and descend stairs with alternating step pattern LTG Duration 09/16/23 Assessment Summary Assessment Pt reports anterior hip pain with supine exercises, better tolerance to sitting/standing exercises, instructed pt in sitting/standing vs supine exercises for HEP. Heavy verbal cues throughout session for pt posture. Pt ambulates with antalgic gait, avoiding weight bearing into RLE. Adjusted pt SPC to correct height this session, pt admits he did lower the cane from what it was adjusted to in the hospital, educated patient on posture and compensations present with incorrect height of AD, great improvement to posture with adjusted SPC ambulating out of session. Instructed pt in weight shifting with UE support for HEP to increase tolerance for weight acceptance during gait. Plan to assess pt tolerance next session and continue to work on gait mechanics and strengthening. Physical Therapy Plan Frequency and Duration Frequency of Treatment 8 visits Duration of treatment (weeks) 6 Plan of Care Start Date 08/06/23 Plan of Care End Date 09/20/23 Therapeutic Interventions Therapeutic Interventions Gait Training,Home Exercise Program,Manual Therapy, Neuromuscular Re-education, Patient/Caregiver Education, Self-Care/Home Management,Soft Tissue Mobilization,Taping, Therapeutic Activities, Therapeutic Exercises Modalities Cold Pack/Ice Massage,Electric Stimulation,Infrared Therapy Next Visit Focus/Plan Next Note Type Treatment Note Next Visit Plan Recumbent bike stepper, add shuttle press Zac. Continue NAVIN rehab (anterior approach). Gait training with cane, trial gait training on stairs step-to pattern on 4-6 stairs . LE strengthening, End with ice right hip. Possible patient and ed for sidelying positioning on right pillows between knees for improved comfort and sleep.
--- NOTE | 2023-08-20 17:03 | PT.OTN ---
Current Diagnoses Other chronic pain (08/27/23) Unilateral primary osteoarthritis, right hip (08/27/23) Pain in right hip (08/27/23) Difficulty in walking, not elsewhere classified (08/27/23) Weakness (08/27/23) Aftercare following joint replacement surgery (08/27/23) Presence of right artificial hip joint (08/27/23) Physical Therapy Treatment Note PT-OP-A Visit Information Start: 08/05/23 16:35 Freq: Status: Active Protocol: Document 08/20/23 13:42 SW (Rec: 08/20/23 13:44 SW [id number]) Out-Patient Physical Therapy Visit Information Visit Information Visit Type Treatment Note Visit Start Time 13:45 Visit Stop Time 14:25 Visit Number 6 Number of UNLOAD ASSOCIATE Visits 4 PT-OP-B Current Condition Start: 08/05/23 16:35 Freq: Status: Active Protocol: Document 08/08/23 09:46 SAK (Rec: 08/08/23 10:38 SAK [id number]) Current Condition History of Current Condition Onset Date 07/31/23 Current Complaints right NAVIN (ant) History of Current Condition Patient reports he has had right hip pain x 7 years. Since surgery has been truggling with pain management , doctor added Ibuprofen and increased Oxycodone as needed. Has been using small gel ice packs. 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 Has been doing some exercises, not all; only glut sets and ankle pumps. Has been up stairs 2x at home; railing and cane, but has difficulty(pain) with descending step to pattern, has been sleeping in a recliner. History left total quadricep tendon rupture s/p surgery, and LBP due to compensation with walking. Future Testing and Treatments Planned sees surgeon 2 weeks post-op PT-OP-C Subjective Start: 08/05/23 16:35 Freq: Status: Active Protocol: Document 08/20/23 13:42 SW (Rec: 08/20/23 13:45 SW [id number]) OP-PT Subjective Patient Comments Patient Comments Pt reports felt fine after last session. Pt reports still feels pain increase with the more exercises, resolves after with rest and ice. Pt reports trying to ween off pain medication to every 8 hours, today is the first day. Pt reports feels popping in lateral right hip every once in awhile when walking, denies increased pain. PT-OP-D Balance Start: 08/05/23 16:35 Freq: Status: Active Protocol: Document 08/06/23 08:10 SAK (Rec: 08/06/23 09:40 [facility] [id number]) OP-PT Balance Assessment Standing Balance Static Standing Balance Ability Fair Device Used FWW Khan Fall Scale Copyright Permission PT-OP-G Mobility & Gait Start: 08/05/23 16:35 Freq: Status: Active Protocol: Document 08/06/23 08:10 SAK (Rec: 08/06/23 09:40 [facility] [id number]) OP Gait Assessment Gait Gait Assistance Required: Standby Assistance Distance (Feet) 75 Able to Maintain Weight Bearing Status Yes During Gait Assistive Devices Assistive Device Front Wheeled Walker Gait Deviations General Gait Pattern Antalgic,Decreased Stride Length,Decreased Feet Clearance,Flexed Trunk Comments Gait Comments cues for upright posture, use of gluteals Stair Climbing Evaluation Comments Stair Climbing Comments not done today PT-OP-H Neuro Start: 08/05/23 16:35 Freq: Status: Active Protocol: Document 08/06/23 08:10 SAK (Rec: 08/06/23 09:40 [facility] [id number]) Sensation Evaluation Gross Sensation Gross Sensation Right LE Impaired Sensation Description Paresthesia Comments Summary Comments numbness around incision, otherwise denies N/T PT-OP-J Posture/Palpation/Skin Start: 08/05/23 16:35 Freq: Status: Active Protocol: Document 08/06/23 08:10 SAK (Rec: 08/06/23 09:40 [facility] [id number]) Posture Evaluation Position Standing Head/C-Spine Posture Forward Head T-Spine Posture Increased Kyphosis Weight Distribution Weight Shifted Left Palpation Assessment Location One Palpation Location right hip around incision Palpation Findings Edema,Tenderness Palpation Details mild increase in warmth Skin Assessment Other Assessments Skin Assessment Comments no signs or symptomns of infection PT-OP-K Range of Motion Start: 08/05/23 16:35 Freq: Status: Active Protocol: Document 08/06/23 08:10 SAK (Rec: 08/06/23 09:40 [facility] [id number]) Hip Goniometric Range of Motion Hip Right Hip ROM WFL No Flexion w/Knee Flexed 70 Abduction 25 Comments AAROM, lacking full extension, doesn't tolerate right LE being flat on plinth Left Active Hip ROM WFL Yes Hip ROM Limitations Hip ROM Limitations Soft Tissue Tightness,Muscle Weakness,Pain,Swelling Knee Goniometric Range of Motion Knee Right Knee ROM WFL Yes Left Comments lacking full extension -8 PT-OP-M Strength Start: 08/05/23 16:35 Freq: Status: Active Protocol: Document 08/06/23 08:10 SAK (Rec: 08/06/23 09:40 SAK [id number]) Hip Strength Hip Manual Muscle Testing Left Comments WFL Right Comments less than antigravity, requires mod assist hip flex and abd Knee Strength Knee Manual Muscle Testing zac Comments NO MMT due to recent surgery but has antigravity strength, no giving way with gait Ankle/Foot Strength Ankle and Foot Manual Muscle Testing zac Dorsiflexion (L4) 5 Normal Plantarflexion (S1) 5 Normal PT-OP-Q Treatments Start: 08/05/23 16:35 Freq: Status: Active Protocol: Document 08/20/23 13:42 SW (Rec: 08/20/23 13:45 SW [id number]) Therapeutic Exercises Standing Exercises Step Up Standing Exercise Name Step up, Step to pattern Side bilateral Equipment Used UE support bilat handrail, 6 step Reps/Minutes 8' Comments cued for hip flexion hip abduction Side right Resistance Lvl 1 TB Equipment Used counter contact Reps/Minutes 3x10 Comments cued elongated tall posturing hip flex Standing Exercise Name (may) Side bilateral Resistance AROM Equipment Used @ rail Reps/Minutes 10x Comments cues to think stepping up onto step weight shift Side bilateral Equipment Used @ rail Reps/Minutes 10x ea Comments weight acceptance, UE support, cues for posture Gait Training Gait Activity SPC Description Gait Device Used SPC LUE Level of Assistance SBA Surface carpet/tile Distance/Duration 2 x 125 ft Treatment Focus gait mechanics, weight shifting, posture Comments moderate cues required for mechanics Neuro Re-Education Treatment Balance Activities SLS Details stabilization Reps/Duration 3 x 30 Comments UE support at rail PT-OP-R Modalities Start: 08/05/23 16:35 Freq: Status: Active Protocol: Document 08/13/23 10:40 SP (Rec: 08/15/23 07:34 SP [id number]) Hot Pack/Cold Pack Treatment Cold Pack Location right hip Patient Position Hooklying Patient Tolerance Good Comments incorporating during day home. PT-OP-T Assessment and Plan Start: 08/05/23 16:35 Freq: Status: Active Protocol: Document 08/20/23 13:42 (Rec: 08/20/23 13:44 [id number]) Physical Therapy Assessment Goals Three Impairment pain right hip Impairment as high as 9/10 Short Term Goal (STG) Patient will report at least a 50% decrease in pain with all ADL's right hip STG Duration 08/27/23 Fpc Goal (LTG) Patient will report at least a 75% reduction in pain with all usual activities LTG Duration 09/16/23 Two Impairment weakness Short Term Goal (STG) Patient to be instructed in HEP for purposes of right hip strengthening and ROM to address strength impairments STG Duration 08/27/23 Actuarial Trainee Goal (LTG) Patient will be independentt and compliant with HEP and demonstrate improvement in functional strength including ability to transfer from sit to stand without using UE's and greater than antigravity strength all muscle groups LTG Duration 09/16/23 One Impairment gait dysfunction Impairment antalgic gait using FWW, difficulty with stair ambulation Short Term Goal (STG) Patient will be able to ambulate on level surfaces with cane with min to no limp and ascend and descend stairs with step-to pattern without difficulty STG Duration 08/27/23 Fpc Goal (LTG) Patient will be able to ambulate on level surfaces without an assistive device with min to no limp and ascend and descend stairs with alternating step pattern LTG Duration 09/16/23 Assessment Summary Assessment Pt reports feels improved posture with SPC adjusted to correct height. Pt reports decreased anterior hip pain this session, improved tolerance to standing exercises in HEP vs supine exercises. Pt reports popping feeling when ambulating, not all the time, intermittently, recommended pt to contact doctor to followup. Physical Therapy Plan Frequency and Duration Frequency of Treatment 8 visits Duration of treatment (weeks) 6 Plan of Care Start Date 08/06/23 Plan of Care End Date 09/20/23 Therapeutic Interventions Therapeutic Interventions Gait Training,Home Exercise Program,Manual Therapy, Neuromuscular Re-education, Patient/Caregiver Education, Self-Care/Home Management,Soft Tissue Mobilization,Taping, Therapeutic Activities, Therapeutic Exercises Modalities Cold Pack/Ice Massage,Electric Stimulation,Infrared Therapy Next Visit Focus/Plan Next Note Type Treatment Note Next Visit Plan Recumbent bike stepper, add shuttle press Zac. Continue NAVIN rehab (anterior approach). Gait training with cane, trial gait training on stairs step-to pattern on 4-6 stairs . LE strengthening, End with ice right hip. Possible patient and ed for sidelying positioning on right pillows between knees for improved comfort and sleep.
--- NOTE | 2023-08-27 17:05 | PT.OTN ---
Current Diagnoses Other chronic pain (08/27/23) Unilateral primary osteoarthritis, right hip (08/27/23) Pain in right hip (08/27/23) Difficulty in walking, not elsewhere classified (08/27/23) Weakness (08/27/23) Aftercare following joint replacement surgery (08/27/23) Presence of right artificial hip joint (08/27/23) Physical Therapy Treatment Note PT-OP-A Visit Information Start: 08/05/23 16:35 Freq: Status: Active Protocol: Document 08/27/23 13:55 SW (Rec: 08/27/23 14:22 SW [id number]) Out-Patient Physical Therapy Visit Information Visit Information Visit Type Treatment Note Visit Note pt late Part of session with Carla Lechuga, PT Visit Start Time 13:52 Visit Stop Time 14:30 Visit Number 7 Number of ASSISTANT OCEANOGRAPHER Visits 5 Precautions Precautions Anterior hip replacement precautions PT-OP-B Current Condition Start: 08/05/23 16:35 Freq: Status: Active Protocol: Document 08/08/23 09:46 SAK (Rec: 08/08/23 10:38 SAK [id number]) Current Condition History of Current Condition Onset Date 07/31/23 Current Complaints right NAVIN (ant) History of Current Condition Patient reports he has had right hip pain x 7 years. Since surgery has been truggling with pain management , doctor added Ibuprofen and increased Oxycodone as needed. Has been using small gel ice packs. 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 Has been doing some exercises, not all; only glut sets and ankle pumps. Has been up stairs 2x at home; railing and cane, but has difficulty(pain) with descending step to pattern, has been sleeping in a recliner. History left total quadricep tendon rupture s/p surgery, and LBP due to compensation with walking. Future Testing and Treatments Planned sees surgeon 2 weeks post-op PT-OP-C Subjective Start: 08/05/23 16:35 Freq: Status: Active Protocol: Document 08/27/23 13:55 SW (Rec: 08/27/23 14:22 SW [id number]) OP-PT Subjective Patient Comments Patient Comments Pt reports popping is less, doctor instructed to rest and then followup if needed for x ray, pt admits has not been resting, been working. Pt reports no longer taking the oxy pain medication, pain has not been bad. PT-OP-D Balance Start: 08/05/23 16:35 Freq: Status: Active Protocol: Document 08/06/23 08:10 SAK (Rec: 08/06/23 09:40 [facility] [id number]) OP-PT Balance Assessment Standing Balance Static Standing Balance Ability Fair Device Used FWW Khan Fall Scale Copyright Permission PT-OP-G Mobility & Gait Start: 08/05/23 16:35 Freq: Status: Active Protocol: Document 08/06/23 08:10 SAK (Rec: 08/06/23 09:40 [facility] [id number]) OP Gait Assessment Gait Gait Assistance Required: Standby Assistance Distance (Feet) 75 Able to Maintain Weight Bearing Status Yes During Gait Assistive Devices Assistive Device Front Wheeled Walker Gait Deviations General Gait Pattern Antalgic,Decreased Stride Length,Decreased Feet Clearance,Flexed Trunk Comments Gait Comments cues for upright posture, use of gluteals Stair Climbing Evaluation Comments Stair Climbing Comments not done today PT-OP-H Neuro Start: 08/05/23 16:35 Freq: Status: Active Protocol: Document 08/06/23 08:10 SAK (Rec: 08/06/23 09:40 [facility] [id number]) Sensation Evaluation Gross Sensation Gross Sensation Right LE Impaired Sensation Description Paresthesia Comments Summary Comments numbness around incision, otherwise denies N/T PT-OP-J Posture/Palpation/Skin Start: 08/05/23 16:35 Freq: Status: Active Protocol: Document 08/06/23 08:10 SAK (Rec: 08/06/23 09:40 [facility] [id number]) Posture Evaluation Position Standing Head/C-Spine Posture Forward Head T-Spine Posture Increased Kyphosis Weight Distribution Weight Shifted Left Palpation Assessment Location One Palpation Location right hip around incision Palpation Findings Edema,Tenderness Palpation Details mild increase in warmth Skin Assessment Other Assessments Skin Assessment Comments no signs or symptomns of infection PT-OP-K Range of Motion Start: 08/05/23 16:35 Freq: Status: Active Protocol: Document 08/06/23 08:10 SAK (Rec: 08/06/23 09:40 [facility] [id number]) Hip Goniometric Range of Motion Hip Right Hip ROM WFL No Flexion w/Knee Flexed 70 Abduction 25 Comments AAROM, lacking full extension, doesn't tolerate right LE being flat on plinth Left Active Hip ROM WFL Yes Hip ROM Limitations Hip ROM Limitations Soft Tissue Tightness,Muscle Weakness,Pain,Swelling Knee Goniometric Range of Motion Knee Right Knee ROM WFL Yes Left Comments lacking full extension -8 PT-OP-M Strength Start: 08/05/23 16:35 Freq: Status: Active Protocol: Document 08/06/23 08:10 SAK (Rec: 08/06/23 09:40 SAK [id number]) Hip Strength Hip Manual Muscle Testing Left Comments WFL Right Comments less than antigravity, requires mod assist hip flex and abd Knee Strength Knee Manual Muscle Testing zac Comments NO MMT due to recent surgery but has antigravity strength, no giving way with gait Ankle/Foot Strength Ankle and Foot Manual Muscle Testing zac Dorsiflexion (L4) 5 Normal Plantarflexion (S1) 5 Normal PT-OP-Q Treatments Start: 08/05/23 16:35 Freq: Status: Active Protocol: Document 08/27/23 13:55 SW (Rec: 08/27/23 14:22 SW [id number]) Cardio Equipment Recumbent Stepper (Sci-Fit) Duration (Minutes) 4 Resistance 3 Seat Position 12 Therapeutic Exercises Standing Exercises STS Standing Exercise Name Mini squat HS curl Standing Exercise Name HS curl Side bilateral Resistance lvl 2 Equipment Used // bars Reps/Minutes 3 x 10 Comments cues for form Step Up Standing Exercise Name Step up, Step to pattern Side bilateral Equipment Used UE support bilat handrail, 6 step Reps/Minutes 8' Comments cued for hip flexion hip abduction Side right Resistance Lvl 2 TB Equipment Used counter contact Reps/Minutes 3x10 Comments cued elongated tall posturing hip flex Standing Exercise Name (may) Side bilateral Resistance Lvl 1 TB Equipment Used @ rail Reps/Minutes 10x Comments cues to think stepping up onto step Gait Training Gait Activity SPC Description Gait Device Used SPC LUE Level of Assistance SBA Surface carpet/tile Distance/Duration 2 x 125 ft Treatment Focus gait mechanics, weight shifting, posture Comments moderate cues required for mechanics PT-OP-R Modalities Start: 08/05/23 16:35 Freq: Status: Active Protocol: Document 08/13/23 10:40 SP (Rec: 08/15/23 07:34 SP [id number]) Hot Pack/Cold Pack Treatment Cold Pack Location right hip Patient Position Hooklying Patient Tolerance Good Comments incorporating during day home. PT-OP-T Assessment and Plan Start: 08/05/23 16:35 Freq: Status: Active Protocol: Document 08/27/23 13:55 (Rec: 08/27/23 14:22 [id number]) Physical Therapy Assessment Goals Three Impairment pain right hip Impairment as high as 9/10 Short Term Goal (STG) Patient will report at least a 50% decrease in pain with all ADL's right hip Goal met 08/27/23 STG Duration 08/27/23 Met Stone Carriage Operator Goal (LTG) Patient will report at least a 75% reduction in pain with all usual activities LTG Duration 09/16/23 Two Impairment weakness Short Term Goal (STG) Patient to be instructed in HEP for purposes of right hip strengthening and ROM to address strength impairments 08/27/23- Hip abd, Hip flex, Marching, step up, heel/toe raises STG Duration 08/27/23 Shelter Goal (LTG) Patient will be independentt and compliant with HEP and demonstrate improvement in functional strength including ability to transfer from sit to stand without using UE's and greater than antigravity strength all muscle groups LTG Duration 09/16/23 One Impairment gait dysfunction Impairment antalgic gait using FWW, difficulty with stair ambulation Short Term Goal (STG) Patient will be able to ambulate on level surfaces with cane with min to no limp and ascend and descend stairs with step-to pattern without difficulty STG Duration 08/27/23 Shelter Goal (LTG) Patient will be able to ambulate on level surfaces without an assistive device with min to no limp and ascend and descend stairs with alternating step pattern LTG Duration 09/16/23 Assessment Summary Assessment Pt met STG for pain, reports improvement in pain, able to completely get off of prescribed oxycodone. Pt ambulated into session today, with antalgic gait still present, though shows significant progress from previous sessions, able to stand more erect, and less UE reliance to offload RLE, pt still circumducting/hip hiking to clear RLE, worked on gait mechanics this session focusing on hip flexion to continue to make progress toward pt goal, pt improved mechanics with repetition, though reverted back to circumduction as fatigue set in. Plan to continue to progress strength as able an trial leg press as able next session. Physical Therapy Plan Frequency and Duration Frequency of Treatment 8 visits Duration of treatment (weeks) 6 Plan of Care Start Date 08/06/23 Plan of Care End Date 09/20/23 Therapeutic Interventions Therapeutic Interventions Gait Training,Home Exercise Program,Manual Therapy, Neuromuscular Re-education, Patient/Caregiver Education, Self-Care/Home Management,Soft Tissue Mobilization,Taping, Therapeutic Activities, Therapeutic Exercises Modalities Cold Pack/Ice Massage,Electric Stimulation,Infrared Therapy Next Visit Focus/Plan Next Note Type Progress Note Next Visit Plan Recumbent bike stepper, add shuttle press Zac. Continue NAVIN rehab (anterior approach). Gait training with cane, trial gait training on stairs step-to pattern on 4-6 stairs . LE strengthening, End with ice right hip. Possible patient and ed for sidelying positioning on right pillows between knees for improved comfort and sleep.
--- NOTE | 2023-09-05 17:15 | PT.OTN ---
Current Diagnoses Other chronic pain (09/05/23) Unilateral primary osteoarthritis, right hip (09/05/23) Pain in right hip (09/05/23) Difficulty in walking, not elsewhere classified (09/05/23) Weakness (09/05/23) Aftercare following joint replacement surgery (09/05/23) Presence of right artificial hip joint (09/05/23) Physical Therapy Treatment Note PT-OP-A Visit Information Start: 08/05/23 16:35 Freq: Status: Active Protocol: Document 09/05/23 08:13 SAK (Rec: 09/05/23 09:03 [facility] [id number]) Out-Patient Physical Therapy Visit Information Visit Information Visit Type Treatment Note Visit Start Time 08:15 Visit Stop Time 09:10 Visit Number 8 Precautions Precautions Anterior hip replacement precautions PT-OP-B Current Condition Start: 08/05/23 16:35 Freq: Status: Active Protocol: Document 08/08/23 09:46 SAK (Rec: 08/08/23 10:38 SAK [id number]) Current Condition History of Current Condition Onset Date 07/31/23 Current Complaints right NAVIN (ant) History of Current Condition Patient reports he has had right hip pain x 7 years. Since surgery has been truggling with pain management , doctor added Ibuprofen and increased Oxycodone as needed. Has been using small gel ice packs. 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 Has been doing some exercises, not all; only glut sets and ankle pumps. Has been up stairs 2x at home; railing and cane, but has difficulty(pain) with descending step to pattern, has been sleeping in a recliner. History left total quadricep tendon rupture s/p surgery, and LBP due to compensation with walking. Future Testing and Treatments Planned sees surgeon 2 weeks post-op PT-OP-C Subjective Start: 08/05/23 16:35 Freq: Status: Active Protocol: Document 09/05/23 08:13 SAK (Rec: 09/05/23 09:03 SAK [id number]) OP-PT Subjective Patient Comments Patient Comments Min pain yesterday, hurting quite a bit this am. Admits to working a lot, probably overdoing. Hasn't been using ice much. PT-OP-D Balance Start: 08/05/23 16:35 Freq: Status: Active Protocol: Document 08/06/23 08:10 SAK (Rec: 08/06/23 09:40 [facility] [id number]) OP-PT Balance Assessment Standing Balance Static Standing Balance Ability Fair Device Used FWW Khan Fall Scale Copyright Permission PT-OP-G Mobility & Gait Start: 08/05/23 16:35 Freq: Status: Active Protocol: Document 08/06/23 08:10 SAK (Rec: 08/06/23 09:40 [facility] [id number]) OP Gait Assessment Gait Gait Assistance Required: Standby Assistance Distance (Feet) 75 Able to Maintain Weight Bearing Status Yes During Gait Assistive Devices Assistive Device Front Wheeled Walker Gait Deviations General Gait Pattern Antalgic,Decreased Stride Length,Decreased Feet Clearance,Flexed Trunk Comments Gait Comments cues for upright posture, use of gluteals Stair Climbing Evaluation Comments Stair Climbing Comments not done today PT-OP-H Neuro Start: 08/05/23 16:35 Freq: Status: Active Protocol: Document 08/06/23 08:10 SAK (Rec: 08/06/23 09:40 [facility] [id number]) Sensation Evaluation Gross Sensation Gross Sensation Right LE Impaired Sensation Description Paresthesia Comments Summary Comments numbness around incision, otherwise denies N/T PT-OP-J Posture/Palpation/Skin Start: 08/05/23 16:35 Freq: Status: Active Protocol: Document 08/06/23 08:10 SAK (Rec: 08/06/23 09:40 [facility] [id number]) Posture Evaluation Position Standing Head/C-Spine Posture Forward Head T-Spine Posture Increased Kyphosis Weight Distribution Weight Shifted Left Palpation Assessment Location One Palpation Location right hip around incision Palpation Findings Edema,Tenderness Palpation Details mild increase in warmth Skin Assessment Other Assessments Skin Assessment Comments no signs or symptomns of infection PT-OP-K Range of Motion Start: 08/05/23 16:35 Freq: Status: Active Protocol: Document 08/06/23 08:10 SAK (Rec: 08/06/23 09:40 [facility] [id number]) Hip Goniometric Range of Motion Hip Right Hip ROM WFL No Flexion w/Knee Flexed 70 Abduction 25 Comments AAROM, lacking full extension, doesn't tolerate right LE being flat on plinth Left Active Hip ROM WFL Yes Hip ROM Limitations Hip ROM Limitations Soft Tissue Tightness,Muscle Weakness,Pain,Swelling Knee Goniometric Range of Motion Knee Right Knee ROM WFL Yes Left Comments lacking full extension -8 PT-OP-M Strength Start: 08/05/23 16:35 Freq: Status: Active Protocol: Document 08/06/23 08:10 SAK (Rec: 08/06/23 09:40 SAK [id number]) Hip Strength Hip Manual Muscle Testing Left Comments WFL Right Comments less than antigravity, requires mod assist hip flex and abd Knee Strength Knee Manual Muscle Testing farzana Comments NO MMT due to recent surgery but has antigravity strength, no giving way with gait Ankle/Foot Strength Ankle and Foot Manual Muscle Testing farzana Dorsiflexion (L4) 5 Normal Plantarflexion (S1) 5 Normal PT-OP-Q Treatments Start: 08/05/23 16:35 Freq: Status: Active Protocol: Document 09/05/23 08:13 SAK (Rec: 09/05/23 09:03 SAK [id number]) Cardio Equipment Recumbent Stepper (Sci-Fit) Duration (Minutes) 5 Resistance 3 Seat Position 12 Other cues for neutral LE alignment Gym Equipment Shuttle Balance chains red Details bal and weight shift fw/bck, side Reps/Duration 8 min Gait Training Gait Activity stairs Description 4 and 6 Level of Assistance farzana railings, SBA Distance/Duration 2x ea Treatment Focus gluteal activation sideways walk Treatment Focus stability, balance Comments 2x wall bar SPC Description Gait Device Used SPC LUE Level of Assistance SBA Surface firm carpet Distance/Duration 2 x 125 ft Treatment Focus gait mechanics, weight shifting, posture Comments moderate cues required for mechanics, MIRROR for visual feedback Manual Therapy Treatment Soft Tissue Mobilization R hip Body Location around scar, quads, TFL Mobilization Type Myofascial Release,Strumming Intensity/Depth Moderate Body Position Hooklying Comments instruction use of rolling pin Self-Care/Home Management Treatment Education Patient Education Home Exercise Program,Pain Management,Posture Other Education self massage with rolling pin, vitamin e oil on scar PT-OP-R Modalities Start: 08/05/23 16:35 Freq: Status: Active Protocol: Document 09/05/23 08:13 SAK (Rec: 09/05/23 17:15 SAK [id number]) Hot Pack/Cold Pack Treatment Hot Pack Location right anterior hip Patient Position Hooklying Patient Tolerance Good PT-OP-T Assessment and Plan Start: 08/05/23 16:35 Freq: Status: Active Protocol: Document 09/05/23 08:13 [facility] (Rec: 09/05/23 09:03 [facility] [id number]) Physical Therapy Assessment Goals Three Impairment pain right hip Impairment as high as 9/10 Short Term Goal (STG) Patient will report at least a 50% decrease in pain with all ADL's right hip Goal met 08/27/23 STG Duration 08/27/23 Met Three Dimensional Art Instructor Goal (LTG) Patient will report at least a 75% reduction in pain with all usual activities LTG Duration 09/16/23 Two Impairment weakness Short Term Goal (STG) Patient to be instructed in HEP for purposes of right hip strengthening and ROM to address strength impairments 08/27/23- Hip abd, Hip flex, Marching, step up, heel/toe raises STG Duration 08/27/23 Fpc Goal (LTG) Patient will be independentt and compliant with HEP and demonstrate improvement in functional strength including ability to transfer from sit to stand without using UE's and greater than antigravity strength all muscle groups LTG Duration 09/16/23 One Impairment gait dysfunction Impairment antalgic gait using FWW, difficulty with stair ambulation Short Term Goal (STG) Patient will be able to ambulate on level surfaces with cane with min to no limp and ascend and descend stairs with step-to pattern without difficulty 09/05/23: goal progress, dec limp with verbal and visual feedback. Now ususally able to alternate feet on stairs. STG Duration 08/27/23 Three Dimensional Art Instructor Goal (LTG) Patient will be able to ambulate on level surfaces without an assistive device with min to no limp and ascend and descend stairs with alternating step pattern LTG Duration 09/16/23 Assessment Summary Assessment Patient making progress with all PT goals, tending to overdo at work causing increased pain/soreness. Soft tissues tight anterior hip around incision, incision healing well,fully closed. Instructed patient in gentle scar massage and recommended use of vitamin E oil. Also shown how to use rolling pin for self massage soft tissues in thigh. Decreased soft tissue tightness anterior hip after manual work. Moist heat after manual work. Patient reported dec pain. Instructed to ice later after activity or if heat seemed to increase any swelling. Patient demonstrated good understanding. Physical Therapy Plan Frequency and Duration Frequency of Treatment 8 visits Duration of treatment (weeks) 6 Plan of Care Start Date 08/06/23 Plan of Care End Date 09/20/23 Therapeutic Interventions Therapeutic Interventions Gait Training,Home Exercise Program,Manual Therapy, Neuromuscular Re-education, Patient/Caregiver Education, Self-Care/Home Management,Soft Tissue Mobilization,Taping, Therapeutic Activities, Therapeutic Exercises Modalities Cold Pack/Ice Massage,Electric Stimulation,Infrared Therapy Next Visit Focus/Plan Next Note Type Treatment Note Next Visit Plan Add shuttle leg press, continue balance work, soft tissue mobilization anterior hip to decrease soft tissue tightness and improve scar mobility. Continue gait training and leg strengthening . End with ice or heat depending on pt. response today.
--- NOTE | 2023-09-10 16:43 | PT.OTN ---
Current Diagnoses Other chronic pain (09/10/23) Unilateral primary osteoarthritis, right hip (09/10/23) Pain in right hip (09/10/23) Difficulty in walking, not elsewhere classified (09/10/23) Weakness (09/10/23) Aftercare following joint replacement surgery (09/10/23) Presence of right artificial hip joint (09/10/23) Physical Therapy Treatment Note PT-OP-A Visit Information Start: 08/05/23 16:35 Freq: Status: Active Protocol: Document 09/10/23 13:03 SW (Rec: 09/10/23 13:49 SW [id number]) Out-Patient Physical Therapy Visit Information Visit Information Visit Type Treatment Note Visit Start Time 13:00 Visit Stop Time 13:44 Visit Number 9 Number of CHILD PROTECTION SPECIALIST Visits 1 Precautions Precautions Anterior hip replacement precautions PT-OP-B Current Condition Start: 08/05/23 16:35 Freq: Status: Active Protocol: Document 08/08/23 09:46 SAK (Rec: 08/08/23 10:38 SAK [id number]) Current Condition History of Current Condition Onset Date 07/31/23 Current Complaints right NAVIN (ant) History of Current Condition Patient reports he has had right hip pain x 7 years. Since surgery has been truggling with pain management , doctor added Ibuprofen and increased Oxycodone as needed. Has been using small gel ice packs. 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 Has been doing some exercises, not all; only glut sets and ankle pumps. Has been up stairs 2x at home; railing and cane, but has difficulty(pain) with descending step to pattern, has been sleeping in a recliner. History left total quadricep tendon rupture s/p surgery, and LBP due to compensation with walking. Future Testing and Treatments Planned sees surgeon 2 weeks post-op PT-OP-C Subjective Start: 08/05/23 16:35 Freq: Status: Active Protocol: Document 09/10/23 13:03 SW (Rec: 09/10/23 13:49 SW [id number]) OP-PT Subjective Patient Comments Patient Comments Patient reports good response to heat, no increase in inflammation. Has not consistantly been doing ice for pain/inflammation control. PT-OP-D Balance Start: 08/05/23 16:35 Freq: Status: Active Protocol: Document 08/06/23 08:10 SAK (Rec: 08/06/23 09:40 [facility] [id number]) OP-PT Balance Assessment Standing Balance Static Standing Balance Ability Fair Device Used FWW Khan Fall Scale Copyright Permission PT-OP-G Mobility & Gait Start: 08/05/23 16:35 Freq: Status: Active Protocol: Document 08/06/23 08:10 SAK (Rec: 08/06/23 09:40 [facility] [id number]) OP Gait Assessment Gait Gait Assistance Required: Standby Assistance Distance (Feet) 75 Able to Maintain Weight Bearing Status Yes During Gait Assistive Devices Assistive Device Front Wheeled Walker Gait Deviations General Gait Pattern Antalgic,Decreased Stride Length,Decreased Feet Clearance,Flexed Trunk Comments Gait Comments cues for upright posture, use of gluteals Stair Climbing Evaluation Comments Stair Climbing Comments not done today PT-OP-H Neuro Start: 08/05/23 16:35 Freq: Status: Active Protocol: Document 08/06/23 08:10 SAK (Rec: 08/06/23 09:40 [facility] [id number]) Sensation Evaluation Gross Sensation Gross Sensation Right LE Impaired Sensation Description Paresthesia Comments Summary Comments numbness around incision, otherwise denies N/T PT-OP-J Posture/Palpation/Skin Start: 08/05/23 16:35 Freq: Status: Active Protocol: Document 08/06/23 08:10 SAK (Rec: 08/06/23 09:40 [facility] [id number]) Posture Evaluation Position Standing Head/C-Spine Posture Forward Head T-Spine Posture Increased Kyphosis Weight Distribution Weight Shifted Left Palpation Assessment Location One Palpation Location right hip around incision Palpation Findings Edema,Tenderness Palpation Details mild increase in warmth Skin Assessment Other Assessments Skin Assessment Comments no signs or symptomns of infection PT-OP-K Range of Motion Start: 08/05/23 16:35 Freq: Status: Active Protocol: Document 08/06/23 08:10 SAK (Rec: 08/06/23 09:40 [facility] [id number]) Hip Goniometric Range of Motion Hip Right Hip ROM WFL No Flexion w/Knee Flexed 70 Abduction 25 Comments AAROM, lacking full extension, doesn't tolerate right LE being flat on plinth Left Active Hip ROM WFL Yes Hip ROM Limitations Hip ROM Limitations Soft Tissue Tightness,Muscle Weakness,Pain,Swelling Knee Goniometric Range of Motion Knee Right Knee ROM WFL Yes Left Comments lacking full extension -8 PT-OP-M Strength Start: 08/05/23 16:35 Freq: Status: Active Protocol: Document 08/06/23 08:10 SAK (Rec: 08/06/23 09:40 SAK [id number]) Hip Strength Hip Manual Muscle Testing Left Comments WFL Right Comments less than antigravity, requires mod assist hip flex and abd Knee Strength Knee Manual Muscle Testing farzana Comments NO MMT due to recent surgery but has antigravity strength, no giving way with gait Ankle/Foot Strength Ankle and Foot Manual Muscle Testing farzana Dorsiflexion (L4) 5 Normal Plantarflexion (S1) 5 Normal PT-OP-Q Treatments Start: 08/05/23 16:35 Freq: Status: Active Protocol: Document 09/10/23 13:03 SW (Rec: 09/10/23 13:49 [id number]) Cardio Equipment Recumbent Stepper (Sci-Fit) Duration (Minutes) 5 Resistance 3 Seat Position 12 Other cues for neutral LE alignment Gym Equipment Shuttle Recovery Bilateral Details bilateral squats Resistance 87# (3 old) Shuttle Recovery Platform Stable Reps/Time good tolerance, denies increasing pain Shuttle Balance chains red Details bal and weight shift fw/bck, side Reps/Duration 10 Therapeutic Exercises Standing Exercises quad stretch Standing Exercise Name quad stretch Side right STS Standing Exercise Name Mini squat Side bilateral Resistance AROM Equipment Used @ // bars Other Exercises resisted ambulation Other Exercise Name side step Side bilateral Resistance green TB Manual Therapy Treatment Soft Tissue Mobilization R hip Body Location around scar, quads, TFL Mobilization Type Myofascial Release,Strumming Intensity/Depth Moderate Body Position Hooklying Comments pt gave verbal consent for manual treatment PT-OP-R Modalities Start: 08/05/23 16:35 Freq: Status: Active Protocol: Document 09/05/23 08:13 SAK (Rec: 09/05/23 17:15 [facility] [id number]) Hot Pack/Cold Pack Treatment Hot Pack Location right anterior hip Patient Position Hooklying Patient Tolerance Good PT-OP-T Assessment and Plan Start: 08/05/23 16:35 Freq: Status: Active Protocol: Document 09/10/23 13:03 SW (Rec: 09/10/23 13:49 [id number]) Physical Therapy Assessment Goals Three Impairment pain right hip Impairment as high as 9/10 Short Term Goal (STG) Patient will report at least a 50% decrease in pain with all ADL's right hip Goal met 08/27/23 STG Duration 08/27/23 Met Senior Living Goal (LTG) Patient will report at least a 75% reduction in pain with all usual activities LTG Duration 09/16/23 Two Impairment weakness Short Term Goal (STG) Patient to be instructed in HEP for purposes of right hip strengthening and ROM to address strength impairments 08/27/23- Hip abd, Hip flex, Marching, step up, heel/toe raises STG Duration 08/27/23 Emergency Communications Officer Goal (LTG) Patient will be independentt and compliant with HEP and demonstrate improvement in functional strength including ability to transfer from sit to stand without using UE's and greater than antigravity strength all muscle groups LTG Duration 09/16/23 One Impairment gait dysfunction Impairment antalgic gait using FWW, difficulty with stair ambulation Short Term Goal (STG) Patient will be able to ambulate on level surfaces with cane with min to no limp and ascend and descend stairs with step-to pattern without difficulty 09/05/23: goal progress, dec limp with verbal and visual feedback. Now ususally able to alternate feet on stairs. STG Duration 08/27/23 Senior Living Goal (LTG) Patient will be able to ambulate on level surfaces without an assistive device with min to no limp and ascend and descend stairs with alternating step pattern LTG Duration 09/16/23 Assessment Summary Assessment Pt pain level this session was reported 0.5/10. Pt tolerated session well. Continues to ambulate with antalgic gait pattern, improves with cues for posture and mechanics. Continued Scar mobilization this session to increase scar mobilityand decrease tension, good tolerance improved soft tissue mobility post with less tension. . Inititiated leg press this session for strengthening, pt tolerated well, minimal discomfort present, cued pt for RLE alignment, improved with verbal/tactile cueing. Pt to go home and ice post session to assist with inflammation. Physical Therapy Plan Frequency and Duration Frequency of Treatment 8 visits Duration of treatment (weeks) 6 Plan of Care Start Date 08/06/23 Plan of Care End Date 09/20/23 Therapeutic Interventions Therapeutic Interventions Gait Training,Home Exercise Program,Manual Therapy, Neuromuscular Re-education, Patient/Caregiver Education, Self-Care/Home Management,Soft Tissue Mobilization,Taping, Therapeutic Activities, Therapeutic Exercises Modalities Cold Pack/Ice Massage,Electric Stimulation,Infrared Therapy Next Visit Focus/Plan Next Note Type Treatment Note Next Visit Plan continue balance work, soft tissue mobilization anterior hip to decrease soft tissue tightness and improve scar mobility. Continue gait training and leg strengthening . End with ice or heat depending on pt. response today.
--- NOTE | 2023-11-05 15:31 | PT-OP ANOTE ---
patient to be discharged from PT, cancelled his last follow up appointment. No further PT needs at this time.
== END 2023-11-22 15:20 | disposition home or self-care (01) ==
LOC: PHYS 13:00
PROVIDERS: Family Provider Internal Medicine; PCP Internal Medicine; Referring Provider Orthopaedic Surgery; Visit Provider Orthopaedic Surgery
DX: M16.11 Unilateral primary osteoarthritis, right hip (principal); Z47.1 Aftercare following joint replacement surgery; Z96.641 Presence of right artificial hip joint; M25.551 Pain in right hip; G89.29 Other chronic pain; R26.2 Difficulty in walking, not elsewhere classified; R53.1 Weakness
CPT/HCPCS: 97110; 97112; 97116; 97140; 97162; 97535